=== PATIENT | female | born 1990 | race American Indian/Alaskan Native ===

== ENCOUNTER 2017-10-13 21:28 | Emergency (ER) | payer MEDICAID, OTHER, SELFPAY ==
[2017-10-13 21:53] VITALS: BP 107/71; PULSE 78; RESP 18; TEMP 36.9; O2SAT 100; BMI 22.3
--- NOTE | 2017-10-13 22:12 | PC.NURSE ---
pt c/o left lower jaw pain started yesterday, today noticed swelling. asking for antibiotics. states is on suboxone currently and it is helping with the pain.
--- NOTE | 2017-10-13 22:50 | ED_ITS ---
HPI - Dental/Oral General Chief complaint: Dental/Oral Stated complaint: DENTAL, MOUTH PAIN Time Seen by Provider: 10/13/17 22:45 Source: patient Mode of arrival: ambulatory Limitations: no limitations History of Present Illness HPI Narrative: Patient is a 27-year-old female presents with dental pain. She says she woke up this morning and has all left lower jaw swelling and pain. She tried make appointment with dentist but multiple months out. She denies any fever. MD Complaint: tooth pain 2 1. Multiple dental caries all over. No dental abscess Onset (ago): hour(s) Duration: constant Related Data Previous Rx's Medication Instructions Recorded amoxicillin 500 mg PO TID #21 caplet 10/13/17 Allergies Allergy/AdvReac Type Severity Reaction Status Date / Time Cephalexin Allergy Mild Uncoded 08/04/17 12:22 Codeine Allergy Mild Uncoded 08/04/17 12:22 Ibuprofen AdvReac Mild Uncoded 08/04/17 12:22 Review of Systems Review of Systems GENERAL: Denies chills,fever HEENT: See HPI RESPIRATORY: Denies cough, wheezing CARDIOVASCULAR: Denies chest pain, palpitations GASTROINTESTINAL: Denies nausea, vomiting MUSCULOSKELETAL: Denies extremity pain, injury SKIN: No rash, no laceration, no pruritus NEUROLOGIC: Denies weakness, dizziness, headache, numbness 8 point review of systems is negative except for those stated above and HPI All systems reviewed & are unremarkable except as noted in HPI and below [facility] Social History Smoking Status: Current every day smoker Exam Initial Vital Signs Initial Vital Signs: Vital Signs Temperature 98.4 F 10/13/17 21:53 Pulse Rate 78 10/13/17 21:53 Respiratory Rate 18 10/13/17 21:53 Blood Pressure 107/71 10/13/17 21:53 Pulse Oximetry 100 10/13/17 21:53 GENERAL: Well-appearing, well-nourished and in no acute distress. CARDIOVASCULAR: peripheral pulses in tact, cap refill <2 sec RESPIRATORY: No respiratory distress, speaks in full sentences without difficulty EXTREMITIES: Normal range of motion, no clubbing or edema. Neurovascularly intact NEUROLOGICAL: Cranial nerves II through XII grossly intact. Normal gait and speech. SKIN: Warm, dry, no petechiae, no rashes or lesions. [facility] Adult Head Mouth w/Numbe Teeth: 2 1. Multiple dental caries and no dental abscess Course Orders Ordered: Discontinued Medications Amoxicillin ( Trimox 250mg Prepack) 1 bottle MISC SEEINSTR ONE Stop: 10/13/17 22:51 Last Admin: 10/13/17 22:57 Dose: 1 bottle Ibuprofen (Advil) 800 mg PO NOW ONE Stop: 10/13/17 22:51 Last Admin: 10/13/17 22:57 Dose: 800 mg Vital Signs - 8 hr 10/13/17 21:53 10/13/17 23:13 Temperature 98.4 F Pulse Rate 78 60 Respiratory Rate 18 15 Blood Pressure 107/71 123/74 H Pulse Oximetry 100 99 Discharge Plan Departure Patient Disposition: Home, Self-Care Clinical Impression: Pain, dental Discharge Date/Time: 10/13/17 23:14 Interventions: ED Discharge Assessment Last Done: 10/13/17 23:13 Instructions: DI for Dental Pain Activity Restrictions/Additional Instructions: *You have been diagnosed with dental pain *What to do: Ibuprofen take as directed, monitor for worsening swelling *Continue to take medications as directed -amoxicillin 500 mg 3 times a day for 7 days has been faxed to look on her drug at your request *Follow up with your primary care provider in 2-3 days *Return to ER if you should have any new, worsening or concerning symptoms Prescriptions: New amoxicillin 500 mg capsule 500 mg PO TID Qty: 21 RF: 0 Referrals: Darlene Danielson PA-C [Primary Care Provider] -
[2017-10-13] MEDS: AMOXICILLIN 250 MG PREPACK 1 BOTTLE MISC (22:57)
[2017-10-13] MEDS: IBUPROFEN 400 MG TABLET 800 MG PO (22:57)
[2017-10-13 23:13] VITALS: BP 123/74; PULSE 60; RESP 15; O2SAT 99
== END 2017-10-13 23:14 | disposition home or self-care (01) ==
PROVIDERS: Emergency Provider Emergency Medicine; Family Provider Physician Assistant; PCP Physician Assistant
DX: K08.89 Other specified disorders of teeth and supporting structures (principal)
CPT/HCPCS: 99282; 99283

== ENCOUNTER 2017-12-20 15:00 | Emergency (ER) | payer MEDICAID, OTHER, SELFPAY ==
[2017-12-20 15:14] VITALS: BP 115/76; PULSE 70; RESP 12; TEMP 36.5; O2SAT 100
--- NOTE | 2017-12-20 18:35 | ED.DENTAL ---
HPI - Dental/Oral <YAMILE Sykes - Last Filed: 12/20/17 22:28> General Chief complaint: Dental/Oral Stated complaint: MOUTH SWELLING Time Seen by Provider: 12/20/17 18:43 Source: patient Mode of arrival: ambulatory Limitations: no limitations History of Present Illness HPI Narrative: 27-year-old female here for complaint of pain into her left lower gums that started yesterday. She has a history of dental caries and is a daily smoker. She states she is trying to get in to go see the dentist. She denies any fevers or chills. No trauma to the area. Positive p.o. intake. She also states that she has some swelling into her left cheek. She denies any drainage from the area. She denies any other concerns or complaints at this timeframe MD Complaint: tooth pain Onset (ago): day(s) Related Data Previous Rx's Medication Instructions Recorded amoxicillin 500 mg PO TID #21 caplet 10/13/17 amoxicillin-pot clavulanate 1 tab PO BID #19 tab 12/20/17 [Augmentin] Allergies Allergy/AdvReac Type Severity Reaction Status Date / Time Cephalexin Allergy Mild Uncoded 08/04/17 12:22 Codeine Allergy Mild Uncoded 08/04/17 12:22 Ibuprofen AdvReac Mild Uncoded 08/04/17 12:22 Review of Systems <YAMILE Sykes - Last Filed: 12/20/17 22:28> Constitutional Denies chills, Denies fever(s), Denies lethargy and Denies weakness Eyes Denies change in vision, Denies eye discharge, Denies irritation and Denies loss of vision ENT Ears, Nose, Mouth, and Throat: Reports mouth pain Cardiovascular Denies chest pain, Denies irregular heart rhythm, Denies lightheadedness, Denies palpitations, Denies dyspnea, Denies dyspnea on exertion and Denies orthopnea Respiratory Denies cough, Denies dyspnea, Denies dyspnea on exertion and Denies wheezing Gastrointestinal Gastrointestinal: Denies abdominal pain, Denies change in bowel habits, Denies diarrhea, Denies nausea and Denies vomiting Genitourinary Denies hematuria, Denies flank pain, Denies urinary incontinence and Denies urinary urgency Musculoskeletal Denies back pain, Denies muscle weakness, Denies numbness and Denies tingling Integumentary/Breasts Denies pruritus, Denies erythema, Denies rash and Denies wounds Neurologic Denies confusion, Denies loss of vision, Denies numbness, Denies tingling and Denies weakness Psychiatric Denies anxiety, Denies confusion, Denies depression, Denies homicidal ideation and Denies suicidal ideation Endocrine Denies palpitations Hematologic/Lymphatic Denies easy bruising Allergic/Immunologic Denies wheezing Exam <YAMILE Sykes - Last Filed: 12/20/17 22:28> Initial Vital Signs Initial Vital Signs: Vital Signs Temperature 97.7 F 12/20/17 15:14 Pulse Rate 70 12/20/17 15:14 Respiratory Rate 12 12/20/17 15:14 Blood Pressure 115/76 12/20/17 15:14 Pulse Oximetry 100 12/20/17 15:14 Const General: cooperative and well developed Nutritional Appearance: well nourished Orientation: alert, awake, oriented x3 and not confused HENTN Mouth: oral mucosae normal and moist mucous membranes Teeth and gingiva: caries, poor dentition and other (Extensive dental caries. Tenderness to the left lower gum line. No fluctuance or induration.) Chest Chest: normal inspection of the chest Cardio Rate: regular rate Rhythm: regular rhythm Heart Sounds: no click, no gallops, no murmurs and no rubs Pulses: normal peripheral pulses Skin General: no rashes or lesions noted, No jaundice and No petechiae Neuro General: alert, oriented x3, gait normal and no focal motor deficits Speech: speech normal <Yon Oro DO - Last Filed: 12/21/17 01:49> Initial Vital Signs Initial Vital Signs: Vital Signs Temperature 97.7 F 12/20/17 15:14 Pulse Rate 70 12/20/17 15:14 Respiratory Rate 12 12/20/17 15:14 Blood Pressure 115/76 12/20/17 15:14 Pulse Oximetry 100 12/20/17 15:14 Course <YAMILE Sykes - Last Filed: 12/20/17 22:28> Orders Ordered: Discontinued Medications Amoxicillin/Clavulanate Potassium (Augmentin 875-125 Mg) 1 tab PO NOW ONE Stop: 12/20/17 19:23 Last Admin: 12/20/17 19:32 Dose: 1 tab Vital Signs - 8 hr 12/20/17 19:12 Pulse Rate 71 Respiratory Rate 16 Blood Pressure [Right Arm] 106/69 Pulse Oximetry 100 <Yon Oro DO - Last Filed: 12/21/17 01:49> Orders Ordered: Discontinued Medications Amoxicillin/Clavulanate Potassium (Augmentin 875-125 Mg) 1 tab PO NOW ONE Stop: 12/20/17 19:23 Last Admin: 12/20/17 19:32 Dose: 1 tab Vital Signs - 8 hr 12/20/17 19:12 Pulse Rate 71 Respiratory Rate 16 Blood Pressure [Right Arm] 106/69 Pulse Oximetry 100 MDM - Dental/Oral <YAMILE Sykes - Last Filed: 12/20/17 22:28> MDM Narrative Medical decision making narrative: Signs and symptoms present as starting dental abscess secondary to dental caries she is placed on Augmentin. She is encouraged to follow up with dentist soon into affects her dental problems. [id number] ibuprofen as needed for any discomfort. For any worsening symptoms return emergency room. Follow up with primary care provider. Discharge Plan Departure Patient Disposition: Home Clinical Impression: Dental abscess Discharge Date/Time: 12/20/17 19:41 Interventions: ED Discharge Assessment Last Done: 12/20/17 19:40 Instructions: Tooth Abscess Activity Restrictions/Additional Instructions: Signs and symptoms presents as starting dental abscess. You have been placed on antibiotics called Augmentin use as directed. Use [id number] ibuprofen as needed for any discomfort. Follow up with primary care provider. Follow up with her dentist soon. Refer any worsening symptoms return to the emergency room. Prescriptions: New amoxicillin-pot clavulanate [Augmentin] 875-125 mg tablet 1 tab PO BID Qty: 19 RF: 0 No Action amoxicillin 500 mg capsule 500 mg PO TID Qty: 21 RF: 0 Referrals: Darlene Danielson PA-C [Primary Care Provider] - <Yon Oro DO - Last Filed: 12/21/17 01:49> Cosign ED Attending Gonzalo Attestation: I was immediately available in the department for consultation. Documentation has been reviewed. I agree with assessment and plan.
[2017-12-20 19:12] VITALS: BP 106/69; PULSE 71; RESP 16; O2SAT 100
[2017-12-20] MEDS: AMOXICILLIN/CLAV 875/125 MG 1 TAB PO (19:32)
== END 2017-12-20 19:41 | disposition home or self-care (01) ==
PROVIDERS: Emergency Provider Nurse Practitioner Family; Family Provider Physician Assistant; PCP Physician Assistant
DX: K04.7 Periapical abscess without sinus (principal)
CPT/HCPCS: 99282; 99283

== ENCOUNTER → 2018-03-07 14:13 | Outpatient (CLI) | payer MEDICAID, SELFPAY ==
--- NOTE | 2018-03-07 | DI.US.S_ITS ---
PROCEDURE: US OB <= 14 WEEKS FETUS INDICATIONS: SIZING AND DATES OUTSIDE/PRIOR DATING DATA: Last menstrual period (LMP): Not available. LMP-based estimated date of delivery (OSWALDO): Not available. First dating scan (date and location): 03/07/18. Estimated date of delivery (OSWALDO) from first dating scan: The 10/13/18. TECHNIQUE: Real-time scanning was performed of the fetus and maternal pelvic organs, with image documentation. Endovaginal scanning was also performed to better visualize the fetus and maternal ovaries. COMPARISON: None. FINDINGS: Embryo: 2.0 cm crown-rump length equals 8 weeks 4 day gestational age plus or -5 days. heart rate is 175 beats per minute. Measurement variability in dating: +/- 4 weeks by LMP, +/- 7 days by mean sac diameter (use before 6 weeks gestation if crown-rump length not able to be measured), +/- 5 days by crown-rump length (up to 8 weeks 6 days gestation), +/- 7 days by crown-rump length (up to 13 weeks 6 days gestation). Maternal organs: Ovaries are normal considering gestational status. Limited images through the kidneys demonstrate no hydronephrosis. IMPRESSION: Early first trimester gestation, 8 weeks 4 day gestational age with delivered a projected to be centered on 10/13/18, plus or -5 days. Followup anatomic survey at 21 weeks gestation is recommended. Dictated by: Uziel Samuel M.D. on 03/07/2018 at 15:20 Approved by: Uziel Samuel M.D. on 03/07/2018 at 15:21
== END ==
PROVIDERS: PCP Physician Assistant; Visit Provider Family Medicine
DX: Z36.89 Encounter for other specified antenatal screening (principal); Z3A.08 8 weeks gestation of pregnancy
CPT/HCPCS: 76801; 76817

== ENCOUNTER 2018-05-26 11:10 | Emergency (ER) | payer MEDICAID, SELFPAY ==
[2018-05-26 11:16] VITALS: BP 114/71; PULSE 94; RESP 20; TEMP 36.7; O2SAT 100
--- NOTE | 2018-05-26 13:08 | ED_ITS ---
HPI - Dental/Oral <YAMILE Sykes - Last Filed: 05/26/18 21:48> General Chief complaint: Dental/Oral Stated complaint: sent by doctor for meds Time Seen by Provider: 05/26/18 12:38 Source: patient Mode of arrival: ambulatory Limitations: no limitations History of Present Illness HPI Narrative: A 28-year-old female with history of past heroin and meth abuse that is a part-time smoker here for complaint of pain and swelling to her lower incisor area. She has dental caries and dental fractures and that she is currently being treated for by her dentist. She reports that she has had swelling over the past couple of days is concerned for a dental infection. No trauma. She denies any drainage from the area. She is currently approximately 5 months she is 4 para 0. She denies any fevers. She denies any other concerns or complaints at this timeframe. MD Complaint: tooth pain Related Data Previous Rx's Medication Instructions Recorded amoxicillin-pot clavulanate 1 tab PO BID #14 tab 05/26/18 [Augmentin] Allergies Allergy/AdvReac Type Severity Reaction Status Date / Time Cephalexin Allergy Mild Uncoded 05/26/18 11:16 Codeine Allergy Mild Uncoded 05/26/18 11:16 Review of Systems <YAMILE Sykes - Last Filed: 05/26/18 21:48> Constitutional Denies chills, Denies fever(s), Denies lethargy and Denies weakness Eyes Denies change in vision, Denies eye discharge, Denies irritation and Denies loss of vision ENT Comments: Dental pain and swelling Cardiovascular Denies chest pain, Denies irregular heart rhythm, Denies lightheadedness, Denies palpitations, Denies dyspnea, Denies dyspnea on exertion and Denies orthopnea Respiratory Denies cough, Denies dyspnea, Denies dyspnea on exertion and Denies wheezing Gastrointestinal Gastrointestinal: Denies abdominal pain, Denies change in bowel habits, Denies diarrhea, Denies nausea and Denies vomiting Genitourinary Denies hematuria, Denies flank pain, Denies urinary incontinence and Denies urinary urgency Musculoskeletal Denies back pain, Denies muscle weakness, Denies numbness and Denies tingling Integumentary/Breasts Denies pruritus, Denies erythema, Denies rash and Denies wounds Neurologic Denies confusion, Denies loss of vision, Denies numbness, Denies tingling and Denies weakness Psychiatric Denies anxiety, Denies confusion, Denies depression, Denies homicidal ideation and Denies suicidal ideation Endocrine Denies palpitations Hematologic/Lymphatic Denies easy bruising Allergic/Immunologic Denies wheezing Exam <YAMILE Sykes - Last Filed: 05/26/18 21:48> Initial Vital Signs Initial Vital Signs: Vital Signs Temperature 98.1 F 05/26/18 11:16 Pulse Rate 94 H 05/26/18 11:16 Respiratory Rate 20 05/26/18 11:16 Blood Pressure 114/71 05/26/18 11:16 Pulse Oximetry 100 05/26/18 11:16 Const General: cooperative and well developed Nutritional Appearance: well nourished Orientation: alert, awake, oriented x3 and not confused HENMT Mouth: moist mucous membranes Teeth and gingiva: caries, gingiva abnormal (Swelling and tenderness to the lower anterior gingiva in area of 23 and 24 small abscess is appreciated to anterior area. ) with purulent discharge and tender and poor dentition Eyes Conjunctivae: conjunctivae normal Sclera: sclerae normal Pupils: PERRL EOM: EOM intact bilaterally Resp Effort & Inspection: normal respiratory effort, able to speak in complete sentences, no respiratory distress and no use of accessory muscles Auscultation: clear to auscultation bilaterally, no rales, no rhonchi and no wheezes Cardio Rate: regular rate Rhythm: regular rhythm Heart Sounds: no click, no gallops, no murmurs and no rubs Pulses: normal peripheral pulses <Cindy Palmer DO - Last Filed: 05/30/18 18:55> Initial Vital Signs Initial Vital Signs: Vital Signs Temperature 98.1 F 05/26/18 11:16 Pulse Rate 94 H 05/26/18 11:16 Respiratory Rate 20 05/26/18 11:16 Blood Pressure 114/71 05/26/18 11:16 Pulse Oximetry 100 05/26/18 11:16 Course <YAMILE Sykes - Last Filed: 05/26/18 21:48> Vital Signs - 8 hr 05/26/18 11:16 Temperature 98.1 F Pulse Rate 94 H Respiratory Rate 20 Blood Pressure 114/71 Pulse Oximetry 100 <Cindy Palmer DO - Last Filed: 05/30/18 18:55> Vital Signs - 8 hr 05/26/18 11:16 Temperature 98.1 F Pulse Rate 94 H Respiratory Rate 20 Blood Pressure 114/71 Pulse Oximetry 100 MDM - Dental/Oral <Rashad HensonYAMILE lopez - Last Filed: 05/26/18 21:48> Lab Data Urine Dip Bedside Urine Glucose Negative Bedside Urine Bilirubin - Negative Bedside Urine Ketone - Negative Urine Specific [place] 1.015 Bedside Urine Occult Blood - Negative Bedside Urine pH 6.0 Bedside Urine Protein - Negative Bedside Urine Urobilinogen - Negative Bedside Urine Nitrite - Negative Bedside Urine Leukocytes - Negative Esterase MDM Narrative Medical decision making narrative: Small abscess to the anterior lower gingiva was able to be drained with manual pressure. heart tones were obtained and were normal. POC urine dipstick was obtained and was negative for urinary tract infection. She is placed on Augmentin. [id number] Tylenol as needed for any discomfort. Follow up with dentist in the next few days for re- evaluation and treatment. For any worsening symptoms return to the emergency room. <Cindy Palmer DO - Last Filed: 05/30/18 18:55> Lab Data Urine Dip Bedside Urine Glucose Negative Bedside Urine Bilirubin - Negative Bedside Urine Ketone - Negative Urine Specific [place] 1.015 Bedside Urine Occult Blood - Negative Bedside Urine pH 6.0 Bedside Urine Protein - Negative Bedside Urine Urobilinogen - Negative Bedside Urine Nitrite - Negative Bedside Urine Leukocytes - Negative Esterase Discharge Plan Departure Patient Disposition: Home Clinical Impression: Abscess, dental Discharge Date/Time: 05/26/18 13:45 Interventions: ED Discharge Assessment Last Done: 05/26/18 13:44 Instructions: Tooth Abscess Activity Restrictions/Additional Instructions: Signs and symptoms presents as a dental abscess/infection. You are placed on Augmentin an antibiotic use as directed. Use [id number] Tylenol as needed for discomfort. Follow up with her dentist in the next few days for re- evaluation and treatment of dental caries. For any worsening symptoms return to the emergency room. Prescriptions: New amoxicillin-pot clavulanate [Augmentin] 875-125 mg tablet 1 tab PO BID Qty: 14 RF: 0 Referrals: Darlene Danielson PA-C [Primary Care Provider] - <Cindy Palmer DO - Last Filed: 05/30/18 18:55> Cosign ED Attending Cosignature Attestation: I was immediately available in the department for consultation. Documentation has been reviewed. I agree with assessment and plan.
[2018-05-26 13:42] VITALS: BP 111/67; PULSE 88; RESP 18; O2SAT 100
== END 2018-05-26 13:45 | disposition home or self-care (01) ==
PROVIDERS: Emergency Provider Nurse Practitioner Family; PCP Physician Assistant
DX: K04.7 Periapical abscess without sinus (principal)
CPT/HCPCS: 81003; 99282; 99283

== ENCOUNTER 2018-07-08 17:07 | Emergency (ER) | payer MEDICAID, SELFPAY ==
[2018-07-08 17:56] VITALS: BP 106/68; PULSE 93; RESP 19; TEMP 38.3; O2SAT 97
[2018-07-08 18:33] LABS: Strep Grp A by PCR Rapid Negative
[2018-07-08 18:36] LABS: Influenza A and B by PCR Rapid Negative (Negative)
--- NOTE | 2018-07-08 20:48 | ED.URI ---
HPI - URI/Sore Throat <Kristy Hayden PA-C - Last Filed: 07/08/18 22:38> General Chief Complaint: Upper Respiratory Symptoms Stated Complaint: cough, hard time breathing, sick 26 wks preg Time Seen by Provider: 07/08/18 18:47 Source: patient Mode of arrival: ambulatory Limitations: no limitations History of Present Illness HPI Narrative: This 28 year old female who is 26 weeks pG comes in due to cough, wheeze, and dyspnea. She states that 2 weeks ago, she had a head cold which seemed pretty much resolved however 3 days ago she woke up with cough, also headaches and feeling warm. She states that her chest can be sore with the cough it, otherwise not having chest pain. She states that she is quite short of breath with the cough bit, and otherwise does not feel like her breathing is quite as good as normal. She does have a history of asthma and does not have an inhaler at home, states she does not frequently need this as she is sick. She feels like her sinus symptoms and congestion are better but still having postnasal drip. Her cough is occasionally productive. She denies any new pain or swelling in her legs. She denies any specific exposures, new rash or other new complaints Related Data Previous Rx's Medication Instructions Recorded amoxicillin-pot clavulanate 1 tab PO BID #14 tab 05/26/18 [Augmentin] Allergies Allergy/AdvReac Type Severity Reaction Status Date / Time Cephalexin Allergy Mild Uncoded 05/26/18 11:16 Codeine Allergy Mild Uncoded 05/26/18 11:16 Review of Systems <Kristy Hayden PA-C - Last Filed: 07/08/18 22:38> Review of Systems ROS Unobtainable: All systems reviewed & are unremarkable except as noted in HPI and below PFSH <Kristy Hayden PA-C - Last Filed: 07/08/18 22:38> Medical History Asthma (Chronic) No pertinent family history (Chronic) Surgical History No pertinent past surgical history (Chronic) Social History Smoking Status: Current every day smoker Social History Smoking Status: Current every day smoker Exam <Kristy Hayden PA-C - Last Filed: 07/08/18 22:38> Narrative Exam Narrative: GENERAL APPEARANCE: Patient sitting comfortably, in no distress. HEAD: No sinus TTP. EYES: PERRL, EOMI. EARS: Normal auditory canals, TMS intact with normal light reflexes. ORAL CAVITY: Normal oropharynx. THROAT: Erythematous with postnasal drip, no exudate NECK/THYROID: Neck supple, full range of motion, no cervical lymphadenopathy. LUNGS: Coarse breath sounds with scattered faint expiratory rhonchi, no crackles, occasional hoarse cough on exam. HEART: RRR without murmur, nl S1, S2, no S3 or S4. EXTREMITIES: No edema, no calf TTP Initial Vital Signs Initial Vital Signs: Vital Signs Temperature 100.9 F H 07/08/18 17:56 Pulse Rate 93 H 07/08/18 17:56 Respiratory Rate 07/08/18 17:56 Blood Pressure 106/68 07/08/18 17:56 Pulse Oximetry 97 07/08/18 17:56 <Cindy Palmer DO - Last Filed: 07/09/18 04:50> Initial Vital Signs Initial Vital Signs: Vital Signs Temperature 100.9 F H 07/08/18 17:56 Pulse Rate 93 H 07/08/18 17:56 Respiratory Rate 07/08/18 17:56 Blood Pressure 106/68 07/08/18 17:56 Pulse Oximetry 97 07/08/18 17:56 Course <Kristy Hayden PA-C - Last Filed: 07/08/18 22:38> Additional Information: Following nebulizer treatment, patient feels significantly improved. She has very minimal remaining expiratory wheeze, good air entry, occasional cough. Influenza and strep tests are negative. Advised this may be related to previous URI that she had as she still notes some postnasal drip, or possibly new chest cold. She was given inhaler with spacer training and agrees to continue this and follow up with her clinic 1st of next week. She agreed to return to ED if any acutely worsening symptoms over the weekend Orders Ordered: Discontinued Medications Acetaminophen (Tylenol) 650 mg PO NOW ONE Stop: 07/08/18 18:48 Last Admin: 07/08/18 21:02 Dose: 650 mg Albuterol (Ventolin Hfa Prepack) 1 box MISC SEEINSTR ONE Stop: 07/08/18 21:02 Last Admin: 07/08/18 21:13 Dose: 1 box Albuterol (Ventolin) 2.5 mg INH NOW ONE Stop: 07/08/18 21:02 Last Admin: 07/08/18 21:13 Dose: 2.5 mg Vital Signs - 8 hr 07/08/18 21:13 07/08/18 21:48 Temperature 98.7 F Pulse Rate 111 H 117 H Respiratory Rate 22 17 Blood Pressure [Left Arm] 102/62 Pulse Oximetry 94 95 <Cindy Palmer DO - Last Filed: 07/09/18 04:50> Orders Ordered: Discontinued Medications Acetaminophen (Tylenol) 650 mg PO NOW ONE Stop: 07/08/18 18:48 Last Admin: 07/08/18 21:02 Dose: 650 mg Albuterol (Ventolin Hfa Prepack) 1 box [facility] [place] ONE Stop: 07/08/18 21:02 Last Admin: 07/08/18 21:13 Dose: 1 box Albuterol (Ventolin) 2.5 mg INH NOW ONE Stop: 07/08/18 21:02 Last Admin: 07/08/18 21:13 Dose: 2.5 mg Vital Signs - 8 hr 07/08/18 21:13 07/08/18 21:48 Temperature 98.7 F Pulse Rate 111 H 117 H Respiratory Rate 22 17 Blood Pressure [Left Arm] 102/62 Pulse Oximetry 94 95 MDM - URI/Sore Throat <Kristy Hayden PA-C - Last Filed: 07/08/18 22:38> Lab Data Lab Results 07/08/18 07/08/18 Range/Units 18:00 18:00 Influenza A & B (PCR) Negative (Negative) Group A Strep (PCR) Negative <Cindy Palmer DO - Last Filed: 07/09/18 04:50> Lab Data Lab Results 07/08/18 07/08/18 Range/Units 18:00 18:00 Influenza A & B (PCR) Negative (Negative) Group A Strep (PCR) Negative Discharge Plan Departure Patient Disposition: Home Clinical Impression: Asthma Qualifiers: Asthma severity: mild Asthma persistence: intermittent Asthma complication type: with acute exacerbation Qualified Code(s): J45.21 - Mild intermittent asthma with (acute) exacerbation Upper respiratory infection Qualifiers: URI type: unspecified viral URI Qualified Code(s): J06.9 - Acute upper respiratory infection, unspecified Discharge Date/Time: 07/08/18 21:53 Interventions: ED Discharge Assessment Last Done: 07/08/18 21:52 Instructions: DI for Asthma -- Adult, DI for Viral Upper Respiratory Infection -- Adult Activity Restrictions/Additional Instructions: Please use the albuterol inhaler that we gave you with the spacer as often as you needed for cough or wheeze. Rest at home. Use Tylenol as needed if you feel like you have a fever. You should return as we talked about if you are feeling acutely worse over the weekend. Otherwise, please call your clinic 1st thing on Wednesday morning and let them know you were seen in the emergency room with asthma we advised you to follow up. Prescriptions: No Action amoxicillin-pot clavulanate [Augmentin] 875-125 mg tablet 1 tab PO BID Qty: 14 RF: 0 Referrals: [facility] [Other] <Cindy Palmer DO - Last Filed: 07/09/18 04:50> Cosign ED Attending Deanature Attestation: I was immediately available in the department for consultation. Documentation has been reviewed. I agree with assessment and plan.
[2018-07-08] MEDS: ACETAMINOPHEN 325 MG TABLET 650 MG PO (21:02)
[2018-07-08 21:13] VITALS: PULSE 111; RESP 22; O2SAT 94
[2018-07-08] MEDS: ALBUTEROL HFA PREPACK 1 BOX MISC (21:13)
[2018-07-08] MEDS: ALBUTEROL 2.5 MG/3 ML NEB (ADULT) INH (21:13)
[2018-07-08 21:48] VITALS: BP 102/62; PULSE 117; RESP 17; TEMP 37.1; O2SAT 95
== END 2018-07-08 21:53 | disposition home or self-care (01) ==
PROVIDERS: Emergency Medicine; Emergency Provider Internal Medicine; PCP Physician Assistant
DX: J45.21 Mild intermittent asthma with (acute) exacerbation (principal); J06.9 Acute upper respiratory infection, unspecified
CPT/HCPCS: 87400; 87651; 94640; 99282; 99283; J7613

== ENCOUNTER 2019-03-29 23:48 | Emergency (ER) | payer MEDICAID, OTHER, SELFPAY ==
[2019-03-29 23:55] VITALS: BP 111/71; PULSE 80; RESP 16; TEMP 36.9; O2SAT 97; BMI 27.4
--- NOTE | 2019-03-30 01:24 | ED_ITS ---
HPI - Dental/Oral General Chief complaint: Dental/Oral Stated complaint: mouth is swollen, tooth infection Time Seen by Provider: 03/30/19 01:24 Source: patient Mode of arrival: Ambulatory Limitations: no limitations History of Present Illness HPI Narrative: This is a 29-year-old female who comes in with complaint of swelling and dental pain. Patient states swelling start of the last couple days. She has had issues with her dentition in the past although not specifically at this location. She has appreciated some swelling of the face and maybe some mild redness. She has not had any fevers. She does not ap preciate any swelling of her tongue or airway. She has not had any changes to her voice. She has not had any nausea or vomiting. She has a dental appointment scheduled on the to have multiple teeth removed and they told her that they would like for her to be started on antibiotics before her dental intervention. MD Complaint: tooth pain Location: Tooth # (22) Related Data Previous Rx's Medication Instructions Recorded amoxicillin-pot clavulanate 1 tab PO BID #14 tab 05/26/18 [Augmentin] amoxicillin-pot clavulanate 1 tab PO Q12H #20 tab 03/30/19 [Augmentin] Allergies Allergy/AdvReac Type Severity Reaction Status Date / Time Cephalexin Allergy Mild Uncoded 05/26/18 11:16 Codeine Allergy Mild Uncoded 05/26/18 11:16 Review of Systems Review of Systems ROS Unobtainable: All systems reviewed & are unremarkable except as noted in HPI and below Patient History Medical History Asthma (Chronic) No pertinent family history (Chronic) Surgical History No pertinent past surgical history (Chronic) Social History Smoking Status: Current every day smoker tobacco type: cigarettes alcohol intake frequency: holidays/special occasions only Substance Use Type: does not use Exam Narrative Exam Narrative: GEN: well nourished, well appearing female, alert and oriented x 3, patient appears to be in mild distress. HEENT: Atraumatic, pupils are equal round reactive to light, extraocular movements are intact, nares are clear, TMs are clear with no fluid, there is no conjunctival pallor. Throat is clear without any exudates, erythema, tonsillar enlargement or uvular deviation, patient has poor dentition throughout. At tooth 22 there is some swelling and erythema patient has some swelling of the skin. There is no discrete fluid collection or fluctuance. I do not appreciate any erythema of the outer skin on the face. Patient does not have any swelling into the neck. She does not any muffled voice or hoarseness. No difficulties with swallowing secretions. HEART: Regular rate and rhythm without murmur, clicks, rubs. LUNGS:Lungs clear to auscultation, no wheezes, rales, crackles, chest moves symmetrically ABD:bowel sounds normal, soft, non-tender, no guarding, rebound, rigidity, no masses noted, no hepatosplenomegaly MSCL:full range of motion, normal gait NEURO:CN 2-12 intact, sensation normal Initial Vital Signs Initial Vital Signs: Vital Signs Temperature 98.4 F 03/29/19 23:55 Pulse Rate 80 03/29/19 23:55 Respiratory Rate 16 03/29/19 23:55 Blood Pressure 111/71 03/29/19 23:55 Pulse Oximetry 97 03/29/19 23:55 Course Orders Ordered: Discontinued Medications Amoxicillin/Clavulanate Potassium (Augmentin 875-125 Mg) 1 tab PO NOW ONE Stop: 03/30/19 01:44 Last Admin: 03/30/19 01:47 Dose: 1 tab Documented by: PRETTY Vital Signs Vital signs: Vital Signs - 8 hr 03/29/19 23:55 03/30/19 01:54 Temperature 98.4 F Pulse Rate 80 75 Respiratory Rate 16 15 Blood Pressure 111/71 117/79 Pulse Oximetry 97 98 MDM - Dental/Oral MDM Narrative Medical decision making narrative: Plan for patient to continue with ibuprofen Tylenol as needed for pain, told her she can use Orajel but only sparingly. She has an appointment with the dentist on the and she has taken Augmentin the past with improvement so she was started again as she does appear to have an infection. Discharge Plan Departure Patient Disposition: Home Clinical Impression: Dental abscess Discharge Date/Time: 03/30/19 01:54 Instructions: Tooth Abscess Activity Restrictions/Additional Instructions: Follow-up with your dentist at your scheduled appointment. You may continue ibuprofen up to 800 mg every 8 hours and/or Tylenol up to a 1000 mg every 8 hours. You may use Orajel sparingly to the affected tooth. Return for fevers greater than 100.4 F, rapidly worsening swelling of the face, tongue, lips, airway for having muffled voice or changes to your voice, difficulty swallowing liquids or secretions or other new or concerning symptoms. Prescriptions: New amoxicillin-pot clavulanate [Augmentin] 875-125 mg tablet 1 tab PO Q12H Qty: 20 RF: 0 No Action amoxicillin-pot clavulanate [Augmentin] 875-125 mg tablet 1 tab PO BID Qty: 14 RF: 0 Referrals: Darlene Danielson PA-C [Primary Care Provider] -
[2019-03-30] MEDS: AMOXICILLIN/CLAV 875/125 MG 1 TAB PO (01:47)
[2019-03-30 01:54] VITALS: BP 117/79; PULSE 75; RESP 15; O2SAT 98
== END 2019-03-30 01:54 | disposition home or self-care (01) ==
PROVIDERS: Emergency Provider Emergency Medicine; PCP Physician Assistant
DX: K04.7 Periapical abscess without sinus (principal)
CPT/HCPCS: 99282; 99283